=== PATIENT | female | born 1990 | race African-American/Black ===

== ENCOUNTER 2017-09-25 09:33 | Emergency (ER) | payer OTHER ==
[~2017-09-25] VITALS: Ht 154.9 cm; Wt 47.2 kg
[2017-09-25 09:33] VITALS: BP_SYST 129
[2017-09-25 10:42] VITALS: BP_SYST 127
== END 2017-09-25 10:42 | disposition home or self-care (01) ==
LOC: SED 09:33
DX: Z76.0 Encounter for issue of repeat prescription (principal); B00.9 Herpesviral infection, unspecified
CPT/HCPCS: 99283

== ENCOUNTER 2017-11-12 08:37 | Emergency (ER) | payer OTHER ==
[~2017-11-12] VITALS: Ht 157.5 cm; Wt 47.6 kg
[2017-11-12 08:47] VITALS: BP_SYST 154
[2017-11-12 10:28] VITALS: BP_SYST 136
== END 2017-11-12 10:28 | disposition home or self-care (01) ==
LOC: SED 08:37
DX: S61.211A Laceration without foreign body of left index finger without damage to nail, initial encounter (principal); W45.8XXA Other foreign body or object entering through skin, initial encounter; Y93.89 Activity, other specified; Y92.89 Other specified places as the place of occurrence of the external cause; Y99.8 Other external cause status
CPT/HCPCS: 12001; 99283; J7030